=== PATIENT | male | born 1975 | race Caucasian/White ===

== ENCOUNTER 2020-09-24 12:16 | Inpatient (IN) | payer MEDICAID, OTHER ==
[~2020-09-24] VITALS: Ht 180.3 cm; Wt 93.1 kg
[2020-09-24 14:00] LABS: Basophils # (auto) 0.1 10 ^3/uL (0-0.2); Basophils % (auto) 0.6 % (0.0-2.0); Eosinophils # (auto) 0.1 10 ^3/uL (0-0.8); Hematocrit 46.6 % (41.0-53.0); Hemoglobin 15.9 g/dL (13.5-17.5); Lymphocytes # (auto) 2.1 10 ^3/uL (0.4-5.4); Lymphocytes % (auto) 15.3 % (10.0-50.0); Mean Corpuscular Hemoglobin 27.7 pg (28.0-32.0); Mean Corpuscular Volume 81.6 fL (80.0-100.0); Monocytes # (auto) 0.9 10 ^3/uL (0-1.3); Monocytes % (auto) 6.4 % (0.0-12.0); Neutrophils # (auto) 10.5 10 ^3/uL (1.6-8.6); Neutrophils % (auto) 76.7 % (37.0-80.0); Nucleated Red Blood Cells % 0.1 %; Platelet Count (auto) 269 10^3/uL (140-450); Red Blood Cells 5.72 10^6/uL (4.5-5.90); Red Cell Distribution Width 13.6 % (11.8-14.3); White Blood Cell 13.7 10^3/uL (4.4-10.8)
[2020-09-24 14:21] LABS: Albumin 3.9 g/dL (3.4-5.0); Potassium 3.5 mmol/L (3.5-5.1)
[2020-09-24 14:24] LABS: BUN/Creatinine Ratio 10.8; Bilirubin, Total 0.6 mg/dL (0.2-1.0); Total Protein 7.5 g/dL (6.4-8.2)
[2020-09-24] MEDS ORDERED: KETOROLAC TROMETH 30 MG/ML 1ML VIAL IV ONE (14:45)
[2020-09-24] MEDS ORDERED: SODIUM CHLORIDE 0.9% 1,000 ML IVB ONE (14:45)
[2020-09-24] MEDS ORDERED: ONDANSETRON HCL 4 MG/2 ML VIAL IV ONE (14:45)
[2020-09-24] MEDS ORDERED: KETOROLAC TROMETH 30 MG/ML 1ML VIAL IV PRN (16:30)
[2020-09-24] MEDS ORDERED: NITROGLYCERIN 0.4 MG SL TAB SL PRN (16:30)
[2020-09-24] MEDS ORDERED: MORPHINE SULF INJ 2 MG/ML SYRINGE 1ML IV PRN (16:30)
[2020-09-24] MEDS ORDERED: LORazepam 0.5 MG TAB PO PRN (16:30)
[2020-09-24] MEDS ORDERED: ACETAMINOPHEN 325 MG TAB PO PRN (16:30)
[2020-09-24] MEDS ORDERED: TAMSULOSIN HYDROCHLORIDE 0.4 MG CAP PO ONE (16:30)
[2020-09-24] MEDS ORDERED: ALUM & MAG HYDROX-SIMETH LIQ(MAALOX) 30 ML PO PRN (16:30)
[2020-09-24] MEDS ORDERED: cefTRIAXone 1GM/50ML D5W 50 ML IV ONE (16:30)
[2020-09-24] MEDS ORDERED: DOCUSATE SOD 100 MG CAP PO PRN (16:30)
[2020-09-24] MEDS ORDERED: ONDANSETRON HCL 4 MG/2 ML VIAL IV PRN (16:30)
[2020-09-24] MEDS ORDERED: NIFEdipine ER 30 MG TAB PO ONE (17:00)
[2020-09-24] MEDS ORDERED: hydrALAZINE HCL 20 MG/ML VL IV PRN (17:00)
[2020-09-24] MEDS: SODIUM CHLORIDE 0.9% 1,000 ML IV SCH ×2 (17:00→18:49)
--- NOTE | 2020-09-24 17:25 | NUR ---
Patient transferred to unit in stable condition via wheelchair. Patient stable at this time.
[2020-09-24 17:30] VITALS: BP 134/81
[2020-09-24 17:40] VITALS: BP 134/81
--- NOTE | 2020-09-24 18:50 | NUR ---
Patient resting quietly in bed with no complaint of any pain. Started IVF per order. Patient stable.
[2020-09-24 20:08] LABS: Cholesterol 125 mg/dL (< 200); HDL Cholesterol 44 mg/dL (40-59); LDL Cholesterol 79 mg/dL (< 100); Triglycerides 91 mg/dL (< 150)
--- NOTE | 2020-09-24 20:10 | NUR ---
Pt shouting at the hearing impaired teacher who entered pt's room to draw blood cx x2. Pt states he is 'a very hard stick...and I've had enough!" This nurse entered the room to determine reason for shouting and intervene; persuaded pt that blood cx's important in his care and being able to get correct tx and go home. RN and hearing impaired teacher able to reason together and bargain with pt. Pt changed his decision and stated that only two sticks per cx could be attempted. Contact Officer able to do both with only two total. Pt immediately calming down though shouted about the pain he experienced while being stuck.
[2020-09-24] MEDS: MORPHINE SULF INJ 2 MG/ML SYRINGE 1ML IV PRN (21:07)
[2020-09-24 22:06] VITALS: BP 139/75
--- NOTE | 2020-09-25 01:43 | NUR ---
Pt called [facility] to report his R arm had a puffy large area where the IV was. This RN reported to pt's room to find swollen area, puffy as with infiltration medial to IV insertion site. Pt states that he is voiding "about every 10 minutes and not having difficulty with flow as before. Refusing to have IV restarted.
[2020-09-25 05:48] VITALS: BP 132/73
--- NOTE | 2020-09-25 07:30 | NUR ---
Opening Shift Note Assumed care of patient, sleeping upon entering the room. Patient awoken for assessment. A/O X 4. Patient reports bladder frequency and is drinking moderate amounts of water. No stone passing reported. No IV present. He reports IV drug use 4 days ago. No S/S of distress/SOB or pain. Skin is dry and various scabbing noted on both arms. Small abrasion noted on the right thumb. Instructed on POC and to call for assist PRN. Patient verbalized understanding. Bed is in lowest position and the call light is within reach of the patient. Will continue to monitor for changes Q1hr and PRN.
[2020-09-25 08:52] VITALS: BP 110/61
--- NOTE | 2020-09-25 09:00 | NUR ---
Medication administration delay Scheduled Rocephin not given due to the patient having no IV placement. Patient is a regular IV drug user and has no visible veins for a successful attempt to be made. Patient states he "has no veins left". Claims to have used 4 days ago. MID line order placed and PICC nurse called, busy line. No answer to either extension. Will try again.
[2020-09-25] MEDS: NIFEdipine ER 30 MG TAB PO SCH (09:24)
--- NOTE | 2020-09-25 10:29 | NUR ---
PICC line nurse at bedside PICC nurse at bedside attempting to place IV in the right arm. Patient tolerating the procedure well.
--- NOTE | 2020-09-25 10:35 | NUR ---
IV insertion Placed an US guided 20g PIV to right upper arm in the basilic vein with one attempt. Pt tolerated well.
[2020-09-25] MEDS: cefTRIAXone 1GM/50ML D5W 50 ML IV SCH (10:46)
--- NOTE | 2020-09-25 11:45 | NUR ---
Dr. Carr at bedside Dr. Carr at bedside discussing the POC with the patient. Doctor explained nephrostomy procedure and indication. Patient verbalized understanding. Orders given and carried out accordingly.
[2020-09-25 12:42] VITALS: BP 122/76
[2020-09-25 13:05] LABS: INR 1.02 (0.9-1.15); Partial Thromboplastin Time 28.4 sec (23.0-31.2)
--- NOTE | 2020-09-25 14:35 | NUR ---
Patient AMA Patient off the unit to go smoke. Educted the patient on the risks of smoking and the benefits of quitting. Patient verbalized understanding but declined to stay in his room. AMA paper signed.
[2020-09-25 16:27] VITALS: BP 109/60
--- NOTE | 2020-09-25 17:30 | NUR ---
AMA Patient got up to go smoke. No AMA paper signed at this time. Patient did not notify this nurse. Will reinforce the need for signature prior to leaving the unit.
[2020-09-25] MEDS: SODIUM CHLORIDE 0.9% 1,000 ML IV SCH ×3 (18:21→23:19)
[2020-09-25] MEDS: TAMSULOSIN HYDROCHLORIDE 0.4 MG CAP PO SCH (18:21)
--- NOTE | 2020-09-25 19:55 | NUR ---
PT IS OFF OF THE UNIT TO SMOKE AT THIS TIME.
[2020-09-25 22:24] VITALS: BP 121/75
[2020-09-26] MEDS: SODIUM CHLORIDE 0.9% 1,000 ML IV SCH ×4 (01:50→21:50)
[2020-09-26 05:59] VITALS: BP 115/68
--- NOTE | 2020-09-26 07:40 | NUR ---
Opening Shift Note Assumed care of patient. Patient sleeping soundly at this time. Will come back for assessment. Will continue to monitor for changes.
[2020-09-26 09:00] VITALS: BP 123/63
[2020-09-26] MEDS: cefTRIAXone 1GM/50ML D5W 50 ML IV SCH (09:36)
[2020-09-26] MEDS: NIFEdipine ER 30 MG TAB PO SCH (09:37)
[2020-09-26] MEDS: HYDROcodone-ACET 5/325MG TAB PO PRN ×2 (09:43→23:54)
--- NOTE | 2020-09-26 11:30 | NUR ---
Patient off unit to cath lab manager Patient transferred off the unit to cath lab manager by boris with this nurse and supervisor fitting.
[2020-09-26] MEDS ORDERED: LIDOCAINE 2%HCL (LOCAL ANESTH.) INJ 20ML MDV ONE ×2 (13:43→14:27)
[2020-09-26] MEDS ORDERED: MIDAZOLAM HCL 1MG/1ML-2 ML VIAL ONE (13:43)
[2020-09-26] MEDS ORDERED: fentaNYL CITRATE 100 MCG/2 ML VL ONE (13:43)
--- NOTE | 2020-09-26 15:30 | NUR ---
Patient returned to room Patient returned to room and resting comfortably. No complaints of pain at this time. Dr. Carr called message left updating him on the completion of the procedure and possible discharge orders. Patient was told he would be discharged after procedure. Awaiting call back. Will follow up.
[2020-09-26 17:00] VITALS: BP 130/69
[2020-09-26] MEDS: MORPHINE SULF INJ 2 MG/ML SYRINGE 1ML IV PRN (17:15)
[2020-09-26] MEDS: TAMSULOSIN HYDROCHLORIDE 0.4 MG CAP PO SCH (18:14)
--- NOTE | 2020-09-26 19:40 | NUR ---
IV LEAKING AND DC'D WITH CATH TIP INTACT. PT REFUSING NEW IV INSERTION. PT STATES THAT , " I AM SICK OF BEING POKED AND I WILL NOT BE POKED AGAIN." "I DO NOT WANT A NEW IV BECAUSE I AM GOING HOME TOMORROW." EXPLAINED HOSPITAL POLICIES AND RISKS AND BENEFITS OF HAVING AN IV PLACED. PT STILL REFUSES NEW IV INSERTION. Addendum: 09/26/20 at 2105 by KAYCE AGUILAR RN CORRECTION: AT 1940 : PT'S IV NOT DC'D AT THIS TIME. IV SITE IS CDI AND NO REDNESS OR SWELLING. FLUSHES WELL. NO LEAKING NOTED.
--- NOTE | 2020-09-26 19:48 | NUR ---
HOSPITALIST PAGED AND STATUS REPORT GIVEN RE PT REFUSING NEW IV PLACEMENT. DR LEGER AWARE OF PT REFUSAL AND NO NEW ORDERS RECEIVED AT THIS TIME.
[2020-09-26 21:00] VITALS: BP 148/82
--- NOTE | 2020-09-26 23:50 | NUR ---
PAIN PATIENT C/O PAIN TO RIGHT SIDE OF BACK RATED 6/10 USING ADULT PAIN SCALE. THIS RN COVERING FOR PT'S PRIMARY RN. PATIENT IN AGREEMENT WITH MEDICATION FOR PAIN MANAGEMENT (SEE EMAR FOR ADMINISTRATION). WILL NOTIFY PRIMARY RN.
[2020-09-27] MEDS: SODIUM CHLORIDE 0.9% 1,000 ML IV SCH ×2 (04:30→11:10)
[2020-09-27 05:00] VITALS: BP 109/61
[2020-09-27 09:00] VITALS: BP 129/79
[2020-09-27] MEDS: cefTRIAXone 1GM/50ML D5W 50 ML IV SCH (09:00)
[2020-09-27] MEDS: NIFEdipine ER 30 MG TAB PO SCH (09:27)
--- NOTE | 2020-09-27 09:40 | NUR ---
Pt off unit down to smoke at this time.
--- NOTE | 2020-09-27 10:10 | NUR ---
pt back on unit.
[2020-09-27 13:00] VITALS: BP 144/78
[2020-09-27 13:15] VITALS: BP 144/78
--- NOTE | 2020-09-27 14:05 | NUR ---
PAIN PATIENT C/O PAIN TO RIGHT SIDE OF BACK RATED 6/10 USING ADULT PAIN SCALE. WILL MEDICATE WITH NORCO 5/325 AT THIS TIME AND CONTINUE CARE.
[2020-09-27] MEDS: HYDROcodone-ACET 5/325MG TAB PO PRN (14:10)
--- NOTE | 2020-09-27 14:29 | NUR ---
DISCHARGE Discharge instructions given as ordered. Encourage to follow up with PMD as instructed. Urologist Dr. Streeter information provided for patient to call on Tuesday to schedule a follow up appointment. All questions and concerns addressed. Patient verbalized understanding. IV removed with catheter intact, pressure dressing applied. Patient ambulated to brother's vehicle with all personal belongings, accompanied by this RN. No distress noted at time of departure.
== END 2020-09-27 14:30 | disposition home or self-care (01) | DRG 463 ==
LOC: ER 12:16 → OVERFLOW 12:17 → CENTRAL 17:20
PROVIDERS: ADMIT Hospitalist; ATTEND Family Medicine
PROC: 0T9030Z Drainage of Right Kidney with Drainage Device, Percutaneous Approach (ICD-10-PCS; principal; 2020-09-24)
DX: N13.6 Pyonephrosis (principal); N20.2 Calculus of kidney with calculus of ureter; E78.5 Hyperlipidemia, unspecified; E86.0 Dehydration; F17.210 Nicotine dependence, cigarettes, uncomplicated; I10 Essential (primary) hypertension; Z79.899 Other long term (current) drug therapy
CPT/HCPCS: 36415; 74176; 74425; 76942; 80053; 80061; 83036; 83690; 83735; 84484; 85025; 85610; 85730; 87040; 93005; 99152; 99153; C1729; G0378; J0696; J1885; J2250; J2405

== ENCOUNTER 2020-10-04 15:22 | Emergency (ER) | payer SELFPAY ==
[~2020-10-04] VITALS: Ht 180.3 cm; Wt 90.7 kg
[2020-10-04] MEDS ORDERED: CIPROFLOXACIN HCL 500 MG TAB PO ONE (20:30)
[2020-10-04 20:59] VITALS: BP 140/78
[2020-10-04 21:33] LABS: Urine Bacteria FEW /hpf (None Seen); Urine Blood 3+ /uL (Negative); Urine Hyaline Cast FEW /lpf (0 - 2); Urine Mucus FEW (None Seen); Urine Specific Gravity 1.016 (1.001-1.035); Urine WBC 46 /hpf (0 - 3); Urine WBC Clumps PRESENT /hpf (None Seen)
== END 2020-10-04 22:05 | disposition home or self-care (01) ==
LOC: ER 15:22
DX: N39.0 Urinary tract infection, site not specified (principal); E78.5 Hyperlipidemia, unspecified; I10 Essential (primary) hypertension; F17.210 Nicotine dependence, cigarettes, uncomplicated; Z93.6 Other artificial openings of urinary tract status; Z87.442 Personal history of urinary calculi
CPT/HCPCS: 81001

== ENCOUNTER → 2024-03-27 | Outpatient (CLI) | payer MEDICAID ==
[2024-03-27 16:27] LABS: Anion Gap 6 (5-15); Carbon Dioxide 25 mmol/L (20-30); Chloride 107 mmol/L (98-107); Potassium 3.5 mmol/L (3.5-5.1); Sodium 138 mmol/L (136-145)
[2024-03-27 16:28] LABS: Calcium 9.4 mg/dL (8.5-10.1)
[2024-03-27 16:33] LABS: BUN/Creatinine Ratio 13.8 (10.0-20.0); Blood Urea Nitrogen 13 mg/dL (9-23); Glucose 138 mg/dL (74-106)
== END | disposition home or self-care (01) ==
LOC: LAB 15:44
DX: I10 Essential (primary) hypertension (principal)
CPT/HCPCS: 36415; 80048